=== PATIENT | male | born 1960 | race Caucasian/White ===

== ENCOUNTER 2017-11-08 16:39 | Emergency (ER) | payer BC ==
[2017-11-08 16:59] VITALS: BP 109/73
--- NOTE | 2017-11-08 18:04 | UC ---
Abdominal Pain Male HPI - HPI Summary HPI Summary: Patient is an otherwise healthy 57-year-old male presenting to the with chief complaint of pain to the epigastric region which has been intermittent 3 days. Symptoms are worse in the morning and better after eating. Pain does not radiate and does not radiate through to the back. Denies any other quadrant pain. Denies any nausea, vomiting, diarrhea, constipation. Pain is discretely located to the epigastric region and endorses a "gnawing" feeling or a feeling of hunger. Symptoms jhonny briefly after eating. Continues to have normal bowel movements. Has previously been on Pepcid for some gastritis but has not taken any Maalox for breakthrough pain. Denies any cardiac history. - History of Current Complaint Chief Complaint: UCAbdominalPain Stated Complaint: ABDOMINAL PAIN Time Seen by Provider: 11/08/17 17:16 Hx Obtained From: Patient Onset/Duration: Gradual Onset Timing: Intermittent Episodes Lasting: - 30 minutes Severity Initially: Moderate Severity Currently: Moderate Pain Intensity: 0 Pain Scale Used: 0-10 Numeric Location: Epigastric Radiates: No Character: Burning Aggravating Factor(s): Nothing Alleviating Factor(s): Other - food Associated Signs And Symptoms: Positive: Negative - Risk Factors Testicular Torsion: Negative Cardiac Risk Factors: Negative - Allergies/Home Medications Allergies/Adverse Reactions: Allergies Allergy/AdvReac Type Severity Reaction Status Date / Time Penicillins Allergy Unknown Verified 11/08/17 16:59 Reaction Details Home Medications: Home Medications Glucosam/Chondr/Collagn/Hyalur [Th Glucosamine/Chondroiti] 1 cap PO 11/08/17 [ History] Lansoprazole [Prevacid] 30 mg PO 11/08/17 [History] PMH/Surg Hx/FS Hx/Imm Hx Previously Healthy: Yes - Surgical History Surgical History: Yes Surgery Procedure, Year, and Place: excision of skin CA, knee - Family History Known Family History: Positive: None - Social History Occupation: Employed Full-time Lives: With Family Alcohol Use: Occasionally Substance Use Type: None Smoking Status (MU): Never Smoked Tobacco Review of Systems Constitutional: Negative Skin: Negative ENT: Negative Respiratory: Negative Cardiovascular: Negative Gastrointestinal: Abdominal Pain - epigastric Motor: Negative Neurovascular: Negative Neurological: Negative Is Patient Immunocompromised?: No All Other Systems Reviewed And Are Negative: Yes Physical Exam Triage Information Reviewed: Yes Appearance: Well-Appearing, Well-Nourished Vital Signs: Initial Vital Signs Temp 98.5 F 11/08/17 16:54 Pulse 47 11/08/17 16:54 Resp 18 11/08/17 16:54 BP 109/73 11/08/17 16:54 Pulse Ox 100 11/08/17 16:54 Vital Signs Reviewed: Yes Eye Exam: Normal Eyes: Positive: Conjunctiva Clear Respiratory Exam: Normal Respiratory: Positive: Chest non-tender, Lungs clear Cardiovascular Exam: Normal Cardiovascular: Positive: RRR Abdomen Description: Positive: Soft - epigastric pain, no worse on deep palpation Musculoskeletal Exam: Normal Musculoskeletal: Positive: Strength Intact Neurological Exam: Normal Neurological: Positive: Alert Psychological: Positive: Normal Response To Family Skin Exam: Normal Abd Pain Male Course/Dx - Course Course Of Treatment: On arrival, due to epigastric pain, EKG is obtained. Shows normal sinus rhythm with bradycardia. Patient is tender to the epigastric region 3 days which is intermittent and improves with food. He denies any pain currently. Denies any fevers, sweats, chills. Vital signs otherwise stable. I discussed that this is likely an epigastritis. We'll trial a PPI, omeprazole 30 days and give Maalox plus for any breakthrough discomfort. He is okay with this plan. I am not concerned for a cardiac pathology at this time. He is nontender in all 4 quadrants on palpation. Denies any chest pain or shortness of breath. - Differential Dx/Clinical Impression Provider Diagnoses: Epigastric Pain Discharge - Sign-Out/Discharge Documenting (check all that apply): Discharge/Admit/Transfer - Discharge Plan Condition: Stable Disposition: HOME Prescriptions: Al Hydrox/Mg Hydrox/Simet LIQ* [Maalox Plus*] 30 ml PO Q4H PRN #1 udc PRN Reason: epigastric pain Omeprazole 40 mg PO DAILY #30 capsule. Patient Education Materials: Diet for Stomach Ulcers and Gastritis (ED), Epigastric Pain (ED) Referrals: He Santana MD [Medical Doctor] - No Primary Care Phys,NOPCP [Primary Care Provider] - Additional Instructions: If you develop any worsening symptoms, please go to the ED Omeprazole once daily x 30 days Maalox Plus every 4 hours as needed for breakthrough pain Discontinue all NSAID use I have given you a follow up with a GI specialist for any worsening symptoms - Billing Disposition and Condition Condition: STABLE Disposition: HOME
== END 2017-11-08 17:40 | disposition home or self-care (01) ==
LOC: UCEAST 16:39
DX: R10.13 Epigastric pain (principal); Z88.0 Allergy status to penicillin; R00.1 Bradycardia, unspecified
CPT/HCPCS: 93005; 99212; G0463